=== PATIENT | female | born 1970 | race Caucasian/White ===

== ENCOUNTER 2017-08-02 22:01 | Emergency (ER) | payer SELFPAY ==
[~2017-08-02] VITALS: Ht 167.6 cm; Wt 81.9 kg
[2017-08-03] MEDS ORDERED: MOTRIN600 MG PO (00:25)
[2017-08-03] MEDS ORDERED: NORCO 5/3251 TABLET PO (00:25)
[2017-08-03 00:40] VITALS: BP 150/98
== END 2017-08-03 00:41 | disposition home or self-care (01) ==
LOC: EME 22:01
DX: S83.92XA Sprain of unspecified site of left knee, initial encounter (principal); W19.XXXA Unspecified fall, initial encounter; X50.1XXA Overexertion from prolonged static or awkward postures, initial encounter
CPT/HCPCS: 73564; 99281; 99284